=== PATIENT | male | born 1980 | race Caucasian/White ===

== ENCOUNTER 2021-08-06 19:19 | Emergency (ER) | payer OTHER ==
[~2021-08-06 19:19] MED LIST: CLINDAMYCIN HC300 MG PO; TRAMADOL HCL50 MG PO
[2021-08-06 19:48] LABS: HEMOGLOBIN 14.6 gm/dl (14.0-17.5); RED BLOOD COUNT 5.13 M/UL (4.20-5.50); WHITE BLOOD COUNT 8.6 K/UL (4.5-11.0)
[2021-08-06 20:05] LABS: BUN/CREATININE RATIO 26 (0-10)
== END 2021-08-06 21:50 ==
LOC: ER1 19:19
PROVIDERS: Preventive Medicine Occupational Medicine
DX: R56.9 Unspecified convulsions (principal); Z76.5 Malingerer [conscious simulation]; Z20.822 Contact with and (suspected) exposure to COVID-19
CPT/HCPCS: 36600; 70450; 71045; 72125; 80053; 80307; 81001; 82550; 82553; 82803; 83690; 84484; 85025; 87086; 93005; 99285; J7030; U0002